=== PATIENT | male | born 1975 | race Caucasian/White ===

== ENCOUNTER 2018-08-10 14:09 | Emergency (ER) | payer MEDICAID, MEDICARE ==
[2018-08-10 14:15] VITALS: BP 149/90
--- NOTE | 2018-08-10 15:12 | ER Document Report ---
ED Medical Screen (RME) - General Chief Complaint: Shortness Of Breath Stated Complaint: BREATHING ISSUES Time Seen by Provider: 08/10/18 14:52 Mode of Arrival: Ambulatory Information source: Patient Notes: Patient came to the ED because he does not have electricity in his house to power his CPAP machine. Patient has a history of obstructive sleep apnea and sleeps with his CPAP machine at night. He also complained of cough which is nonproductive. He said he ran out of his levothyroxine medicine on Saturday. Not been able to refill his medicine because of her Ammy. View of system is negative and patient does not have any other complaints. TRAVEL OUTSIDE OF THE [place] IN LAST 30 DAYS: No - Related Data Allergies/Adverse Reactions: ezetimibe [From Zetia] Allergy (Verified 08/10/18 14:50) phenytoin [From Dilantin] Allergy (Verified 08/10/18 14:15) Past Medical History - Social History Chew tobacco use (# tins/day): No - 2007 Frequency of alcohol use: None Drug Abuse: None Renal/ Medical History: Denies: Hx Peritoneal Dialysis Physical Exam - Vital signs Vitals: Temp Pulse Resp BP Pulse Ox 98.0 F 91 18 149/90 H 96 08/10/18 14:13 08/10/18 14:13 08/10/18 14:13 08/10/18 14:13 08/10/18 14:13 Course - Vital Signs Vital signs: Temp Pulse Resp BP Pulse Ox 98.0 F 91 18 149/90 H 96 08/10/18 14:13 08/10/18 14:13 08/10/18 14:13 08/10/18 14:13 08/10/18 14:13
--- NOTE | 2018-08-10 15:48 | RADIOLOGY REPORT (SQ) ---
EXAM DESCRIPTION: CHEST 2 VIEWS COMPLETED DATE/TIME: 08/10/2018 3:32 pm REASON FOR STUDY: cough COMPARISON: None. EXAM PARAMETERS: NUMBER OF VIEWS: two views TECHNIQUE: Digital Frontal and Lateral radiographic views of the chest acquired. RADIATION DOSE: NA LIMITATIONS: none FINDINGS: LUNGS AND PLEURA: No opacities, masses or pneumothorax. No pleural effusion. MEDIASTINUM AND HILAR STRUCTURES: No masses or contour abnormalities. HEART AND VASCULAR STRUCTURES: Heart normal size. No evidence for failure. BONES: No acute findings. HARDWARE: None in the chest. OTHER: No other significant finding. IMPRESSION: NO ACUTE RADIOGRAPHIC FINDING IN THE CHEST. TECHNICAL DOCUMENTATION: JOB ID: [id number] [employer]- All Rights Reserved Reading location - IP/workstation name: [email or web address]
[2018-08-10 17:26] LABS: FREE T3 1.3 pg/mL (2.77-5.27); FREE T4 (FREE THYROXINE) 0.35 ng/dL (0.78-2.19)
--- NOTE | 2018-08-10 17:38 | ER Document Report ---
ED Respiratory Problem - General Chief Complaint: Shortness Of Breath Stated Complaint: BREATHING ISSUES Time Seen by Provider: 08/10/18 14:52 Mode of Arrival: Ambulatory Information source: Patient TRAVEL OUTSIDE OF THE [place] IN LAST 30 DAYS: No - HPI Patient complains to provider of: Cough Onset: Just prior to arrival Duration: Better Quality of pain: No pain Severity: None Pain Level: Denies Short of Breath: Mild Cough: Nonproductive Sputum amount: None At home treatment: CPAP EMS treatments: Oxygen Associated symptoms: Cough Similar symptoms previously: Yes Recently seen / treated by doctor: No - Related Data Allergies/Adverse Reactions: ezetimibe [From Zetia] Allergy (Verified 08/10/18 14:50) phenytoin [From Dilantin] Allergy (Verified 08/10/18 14:15) Past Medical History - General Information source: Patient - Social History Smoking Status: Current Some Day Smoker Chew tobacco use (# tins/day): No - 2007 Frequency of alcohol use: None Drug Abuse: None Family History: Reviewed & Not Pertinent Patient has suicidal ideation: No Patient has homicidal ideation: No Renal/ Medical History: Denies: Hx Peritoneal Dialysis Review of Systems - Review of Systems Constitutional: denies: Chills, Fever EENT: No symptoms reported Cardiovascular: Dyspnea. denies: Chest pain, Palpitations Respiratory: No symptoms reported Gastrointestinal: No symptoms reported Genitourinary: No symptoms reported Male Genitourinary: No symptoms reported Musculoskeletal: No symptoms reported Skin: No symptoms reported Hematologic/Lymphatic: No symptoms reported Neurological/Psychological: No symptoms reported -: Yes All other systems reviewed and negative Physical Exam - Vital signs Vitals: Temp Pulse Resp BP Pulse Ox 98.0 F 91 18 149/90 H 96 08/10/18 14:13 08/10/18 14:13 08/10/18 14:13 08/10/18 14:13 08/10/18 14:13 - General General appearance: Appears well, Alert In distress: None - HEENT Head: Normocephalic, Atraumatic Eyes: Normal Pupils: PERRL - Respiratory Respiratory status: No respiratory distress Chest status: Nontender Breath sounds: Normal Chest palpation: Normal - Cardiovascular Rhythm: Regular Heart sounds: Normal auscultation Murmur: No - Abdominal Inspection: Normal Distension: No distension Bowel sounds: Normal Tenderness: Nontender Organomegaly: No organomegaly - Back Back: Normal, Nontender - Extremities General upper extremity: Normal inspection, Nontender, Normal color, Normal ROM , Normal temperature General lower extremity: Normal inspection, Nontender, Normal color, Normal ROM , Normal temperature, Normal weight bearing. No: Franklyn's sign - Neurological Neuro grossly intact: Yes Cognition: Normal Orientation: AAOx4 Vian Coma Scale Eye Opening: Spontaneous Vian Coma Scale Verbal: Oriented Ana Coma Scale Motor: Obeys Commands Vian Coma Scale Total: 15 Speech: Normal Motor strength normal: LUE, RUE, LLE, RLE Sensory: Normal - Psychological Associated symptoms: Normal affect, Normal mood - Skin Skin Temperature: Warm Skin Moisture: Dry Skin Color: Normal Course - Vital Signs Vital signs: Temp Pulse Resp BP Pulse Ox 98.0 F 91 18 149/90 H 96 08/10/18 14:13 08/10/18 14:13 08/10/18 14:13 08/10/18 14:13 08/10/18 14:13 - Laboratory Laboratory results interpreted by me: 08/10/18 16:40 TSH 24.50 H Free T4 0.35 L Free T3 pg/mL 1.30 L - Diagnostic Test Radiology reviewed: Image reviewed, Reports reviewed - Transfer of Care Notes: 08/10/18 17:38 Bronchitis. Medication refill. Discharge - Discharge Clinical Impression: Bronchitis, Medication refill Condition: Stable Disposition: HOME, SELF-CARE Instructions: Bronchitis ([facility]) Additional Instructions: Please follow-up with her primary doctor tomorrow morning. Return to the emergency room if her condition worsens. Prescriptions: Amoxicillin/Potassium Clav [Augmentin 875-125 Tablet] 1 each PO BID 10 Days #20 tablet Levothyroxine Sodium 200 mcg PO QAM #30 tablet
[2018-08-10 17:40] LABS: THYROID STIMULATING HORMONE 24.5 uIU/mL (0.47-4.68)
[2018-08-10] MEDS ORDERED: AMOXICILLIN TR/POT CLAVULANATE 500-125 MG TAB PO ONE (18:11)
[2018-08-10] MEDS ORDERED: LEVOTHYROXINE SODIUM 0.1 MG TABLET PO ONE (18:12)
== END 2018-08-10 18:52 | disposition home or self-care (01) ==
LOC: ER 14:09
DX: J40 Bronchitis, not specified as acute or chronic (principal); Z76.0 Encounter for issue of repeat prescription; R05 Cough; G47.33 Obstructive sleep apnea (adult) (pediatric); Z88.8 Allergy status to other drugs, medicaments and biological substances; F17.200 Nicotine dependence, unspecified, uncomplicated
CPT/HCPCS: 99285; 36415; 84439; 84443; 84481; 71046; J3490 ×2

== ENCOUNTER 2019-04-10 05:46 | Emergency (ER) | payer MEDICARE, MEDICAID ==
[2019-04-10 10:24] LABS: HEMATOCRIT 38.8 % (37.9-51.0); HEMOGLOBIN 12.5 g/dL (13.5-17.0); MEAN CORPUSCULAR HEMOGLOBIN 29.4 pg (27.0-33.4); MEAN CORPUSCULAR HGB CONC 32.2 g/dL (32.0-36.0); MEAN CORPUSCULAR VOLUME 92 fl (80-97); PLATELET COUNT 378 10^3/uL (150-450); RED BLOOD COUNT 4.24 10^6/uL (4.35-5.55); RED CELL DISTRIBUTION WIDTH 13.4 % (11.5-14.0); WHITE BLOOD COUNT 15.1 10^3/uL (4.0-10.5)
[2019-04-10 10:30] LABS: ANION GAP 7 (5-19); BLOOD UREA NITROGEN 19 mg/dL (7-20); CALCIUM 9.1 mg/dL (8.4-10.2); CARBON DIOXIDE 30 mmol/L (22-30); CHLORIDE 103 mmol/L (98-107); GLUCOSE 105 mg/dL (75-110); POTASSIUM 4.6 mmol/L (3.6-5.0); SODIUM 139.5 mmol/L (137-145)
[2019-04-10 10:38] LABS: ABSOLUTE LYMPHOCYTES# (MANUAL) 5.3 10^3/uL (0.5-4.7); ABSOLUTE MONOCYTES # (MANUAL) 1.5 10^3/uL (0.1-1.4); ABSOLUTE NEUTROPHILS# (MANUAL) 8.2 10^3/uL (1.7-8.2); BAND NEUTROPHILS % (MANUAL) 1 % (3-5); BASOPHILS % (MANUAL) 0 % (0-2); EOSINOPHILS % (MANUAL) 1 % (0-6); LYMPHOCYTES % (MANUAL) 30 % (13-45); METAMYELOCYTES % (MANUAL) 1 % (0); MONOCYTES % (MANUAL) 10 % (3-13); NUCLEATED RED BLOOD CELLS 1 /100 WBC (0); SEGMENTED NEUTROPHILS % (MAN) 52 % (42-78); TOTAL CELLS COUNTED 100
[2019-04-10 10:39] LABS: PLATELET COMMENT ADEQUATE; POIKILOCYTOSIS SLIGHT; POLYCHROMASIA SLIGHT; SCHISTOCYTES SLIGHT; TEAR DROP CELLS SLIGHT
--- NOTE | 2019-04-10 10:40 | ER Document Report ---
ED ENT - General Chief Complaint: Sore Throat Stated Complaint: SORE THROAT Time Seen by Provider: 04/10/19 08:12 Mode of Arrival: Ambulatory Information source: Patient Notes: Patient is a 43-year-old male presented to the emergency department chief complaint of sore throat and hoarse voice. Patient reports he was seen at another hospital in [facility] approximately 1 week ago and placed on 40 mg of prednisone twice daily for 5 days. Patient reports symptoms have gotten worse, he states that he is having difficulty swallowing. He is speaking in full and complete sentences although his voice is very hoarse. He is able to swallow his own secretions. Patient denies any fevers. TRAVEL OUTSIDE OF THE [place] IN LAST 30 DAYS: No - Related Data Allergies/Adverse Reactions: ezetimibe [From Zetia] Allergy (Verified 08/10/18 14:50) phenytoin [From Dilantin] Allergy (Verified 08/10/18 14:15) Past Medical History - General Information source: Patient - Social History Smoking Status: Never Smoker Frequency of alcohol use: None Drug Abuse: None Family History: Reviewed & Not Pertinent Patient has suicidal ideation: No Patient has homicidal ideation: No - Past Medical History Cardiac Medical History: Reports: Hx Hypertension Renal/ Medical History: Denies: Hx Peritoneal Dialysis Surgical Hx: Negative - Immunizations Immunizations up to date: Yes Review of Systems - Review of Systems Constitutional: denies: Chills, Fever EENT: Throat pain, Difficulty swallowing, Throat swelling Cardiovascular: No symptoms reported Respiratory: No symptoms reported Gastrointestinal: No symptoms reported Genitourinary: No symptoms reported Male Genitourinary: No symptoms reported Musculoskeletal: No symptoms reported Skin: No symptoms reported Hematologic/Lymphatic: No symptoms reported Neurological/Psychological: No symptoms reported Physical Exam - Vital signs Vitals: Temp Pulse Resp BP Pulse Ox 98 F 65 18 132/90 H 97 04/10/19 05:54 04/10/19 05:54 04/10/19 05:54 04/10/19 05:54 04/10/19 05:54 - Notes Notes: PHYSICAL EXAMINATION: GENERAL: Well-appearing, well-nourished and in no acute distress. HEAD: Atraumatic, normocephalic. EYES: Pupils equal round and reactive to light, extraocular movements intact, sclera anicteric, conjunctiva are normal. ENT: Nares patent, oropharynx clear without exudates. Moist mucous membranes. NECK: Normal range of motion, supple without lymphadenopathy LUNGS: Breath sounds clear to auscultation bilaterally and equal. No wheezes rales or rhonchi. HEART: Regular rate and rhythm without murmurs ABDOMEN: Soft, nontender, nondistended abdomen. No guarding, no rebound. No masses appreciated. Musculoskeletal: Normal range of motion, no pitting or edema. No cyanosis. NEUROLOGICAL: Cranial nerves grossly intact. Normal speech, normal gait. Normal sensory, motor exams PSYCH: Normal mood, normal affect. SKIN: Warm, Dry, normal turgor, no rashes or lesions noted. Course - Re-evaluation Re-evalutation: Patient has leukocytosis of 15,000, this is nonspecific and may represent viral or bacterial infection. Do patient to patient's large body habitus and large neck I am unable to get a full visual on patient's oropharynx, from what I can tell that there is mild tonsillar swelling, the uvula is midline and I do not see any obvious abscess. Patient does have a hoarse voice so patient will be sent for a CT soft tissue neck to evaluate for abscess. Patient was given IM Decadron, he states this has helped his symptoms significantly. Patient's CT of the soft tissue was negative for any abscess or any other abnormal finding. Patient will be discharged home. Rapid strep neg ative, throat culture pending. Likely viral sore throat. Patient given strict ED return precautions, he understands and verbalizes agreement with same. - Vital Signs Vital signs: Temp Pulse Resp BP Pulse Ox 97.7 F 58 L 18 144/82 H 94 04/10/19 12:32 04/10/19 12:32 04/10/19 12:32 04/10/19 12:32 04/10/19 12:32 - Laboratory Result Diagrams: 04/10/19 09:16 04/10/19 09:16 Laboratory results interpreted by me: 04/10/19 09:16 WBC 15.1 H RBC 4.24 L Hgb 12.5 L Band Neutrophils % 1 L Metamyelocytes % 1 H Abs Lymphs (Manual) 5.3 H Abs Monocytes (Manual) 1.5 H Discharge - Discharge Clinical Impression: Sore throat Leukocytosis Qualifiers: Leukocytosis type: unspecified Qualified Code(s): D72.829 - Elevated white blood cell count, unspecified Condition: Stable Disposition: HOME, SELF-CARE Additional Instructions: SORE THROAT: Sore throats may be caused by viruses, bacteria, or fungi. Most are due to a virus, and must get better on their own. Bacterial sore throats, particularly those due to "strep," need treatment with antibiotics. If an antibiotic is prescribed, be sure to take the medication for a full 10 days. Failure to take the antibiotic can result in complications such as rheumatic fever. Sometimes, an injection of antibiotics is given instead of pills or liquid. This single "shot" is equal in effectiveness to the oral medication. To relieve symptoms, take acetaminophen for pain. Sip clear liquids frequently, or eat popsicles or ice chips. Anesthetic sprays or lozenges may help. Make sure the air in the room is not too dry. Avoid using decongestants or antihistamines. Call the doctor if there is no improvement in two days, or if you have difficulty breathing, increasing throat pain, high fever, rash, or frequent vomiting. Clindamycin You have been given a prescription for the antibiotic clindamycin. It is often prescribed for infections in the mouth, such as dental infections or abscesses, and for skin infections due to MRSA. It's important that you take all the medication, unless instructed otherwise by your physician. Failure to complete the entire course can result in relapse of your condition. Common side effects of antibiotics include nausea, intestinal cramping, or diarrhea. Women may develop vaginal yeast infections, and babies can get yeast (thrush) in the mouth following the use of antibiotics. Contact your physician if you develop significant side effects from this medication. Allergy to this antibiotic can result in hives, wheezing, faintness, or itching. If symptoms of allergy occur, stop the medication and call the doctor. STEROID MEDICATION: You have been given a medicine of the cortisone/steroid class. This medication is used to control inflammation or allergy. It is usually only given for a short period of time, until the acute process subsides. There are usually no side effects from short-term use of cortisone-like medications. Some persons feel an increased sense of well-being and are not sleepy at bedtime. Long-term use of cortisone medications is best avoided, unless required for a severe condition. If your condition does not remit, or relapses after the course of corticosteroid medication, you should consult your physician. FOLLOW-UP CARE: If you have been referred to a physician for follow-up care, call the physicians office for an appointment as you were instructed or within the next two days. If you experience worsening or a significant change in your symptoms, notify the physician immediately or return to the Emergency Department at any time for re-evaluation. Please take medication as prescribed. Please also take ibuprofen 600 mg every 6 hours this will not only help with pain but also inflammation. You were given a dose of Decadron and clindamycin here in the emergency department today. The Decadron the last in your system up to 3 days. This is a steroid. It will help reduce inflammation in your airway. Please return to the emergency department with any new or worsening symptoms to include difficulty breathing, difficulty swallowing or any other symptom that is concerning to you. Prescriptions: Clindamycin HCl [Cleocin 150 mg Capsule] 150 mg PO Q6 #30 capsule Forms: Return to Work
[2019-04-10] MEDS ORDERED: CLINDAMYCIN 900 MG/D5W RTU 900 MG/50 ML RTUPB IV ONE (11:08)
[2019-04-10] MEDS ORDERED: DEXAMETHASONE SOD PHOS INJ 10 MG/1 ML VIAL IV ONE (11:08)
--- NOTE | 2019-04-10 11:12 | RADIOLOGY REPORT (SQ) ---
EXAM DESCRIPTION: CT SOFT TISSUE NECK WITH COMPLETED DATE/TIME: 04/10/2019 10:49 am REASON FOR STUDY: throat swelling, eval for abscess COMPARISON: None. TECHNIQUE: Post IV contrasted scanning from skull base through lung apices with review of bone, soft tissue and lung windows. Reconstructed coronal and sagittal MPR images reviewed. All images stored on PACS. All CT scanners at this facility use dose modulation, iterative reconstruction, and/or weight based d osing when appropriate to reduce radiation dose to as low as reasonably achievable (ALARA). [facility]: Dose Right [facility]: CareDose [facility]: Dose Right [facility]: Teradose 4D [facility]: Journalism Online CONTRAST TYPE AND DOSE: contrast/concentration: Isovue 350.00 mg/ml; Total Contrast Delivered: 75.0 ml; Total Saline Delivered: 55.0 ml RENAL FUNCTION: None required. The patient is less than 50 years old. RADIATION DOSE: CT Rad equipment meets quality standard of care and radiation dose reduction techniq ues were employed. CTDIvol: 18.5 mGy. DLP: 565 mGy-cm. . LIMITATIONS: None. FINDINGS: SKULL BASE: Inferior brain parenchyma is unremarkable. MAJOR SALIVARY GLANDS: No solid or cystic masses. No inflammatory changes. LYMPHADENOPATHY: No adenopathy. MUCOSAL MASSES OR ASYMMETRY: No mucosal masses or asymmetry. No enlargement of the pharyngeal tonsil s or intra tonsillar/peritonsillar abscess LARYNX/CORDS: No abnormal findings. VASCULAR STRUCTURES: The major vessels are patent. 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 LUNG APICES: Clear. BONES: Intact. THYROID: Normal size. No masses. PARANASAL SINUSES: Clear. OTHER: No other significant finding. IMPRESSION: NO SIGNIFICANT FINDING IN THE SOFT TISSUES OF THE NECK. TECHNICAL DOCUMENTATION: JOB ID: [id number] Quality ID # [id number]: Final reports with documentation of one or more dose reduction techniques (e.g., Au tomated exposure control, adjustment of the mA and/or kV according to patient size, use of iterative reconstruction technique) 2010 [employer]- All Rights Reserved Reading location - IP/workstation name: [email or web address]
[2019-04-10 12:36] VITALS: BP 144/82
== END 2019-04-10 12:50 | disposition home or self-care (01) ==
LOC: ER 05:46
DX: J02.9 Acute pharyngitis, unspecified (principal); D72.829 Elevated white blood cell count, unspecified; I10 Essential (primary) hypertension
CPT/HCPCS: 99283; 96375; 96365; 36415; 87070; 87880; 85025; 80048; 70491; J3490; J1100

== ENCOUNTER 2019-09-01 11:49 | Emergency (ER) | payer MEDICARE, MEDICAID ==
[2019-09-01 11:58] VITALS: BP 143/85
--- NOTE | 2019-09-01 13:08 | ER Document Report ---
HPI - HPI Patient complains to provider of: Right knee pain Time Seen by Provider: 09/01/19 12:56 Onset: Yesterday Onset/Duration: Sudden Quality of pain: Achy Pain Level: 5 Context: Patient states that he was kneeling down and his knee was on a rock. Patient states that he jumped up suddenly and has had right knee pain since then. Associated Symptoms: Other - Right knee pain Exacerbated by: Standing, Movement, Walking Relieved by: Denies Similar symptoms previously: No Recently seen / treated by doctor: No - ROS ROS below otherwise negative: Yes Systems Reviewed and Negative: Yes All other systems reviewed and negative - MUSCULOSKELETAL Musculoskeletal: REPORTS: Extremity pain - right knee. DENIES: Swelling - DERM Skin Color: Normal Skin Problems: None Past Medical History - General Information source: Patient - Social History Smoking Status: Never Smoker Frequency of alcohol use: None Drug Abuse: None Occupation: None Family History: Reviewed & Not Pertinent Patient has suicidal ideation: No Patient has homicidal ideation: No - Past Medical History Cardiac Medical History: Reports: Hx Atrial Fibrillation, Hx Congestive Heart Failure, Hx Hypertension Renal/ Medical History: Denies: Hx Peritoneal Dialysis Past Surgical History: Reports: Hx Herniorrhaphy - Immunizations Immunizations up to date: Yes Vertical Provider Document - CONSTITUTIONAL Agree With Documented VS: Yes Exam Limitations: No Limitations General Appearance: WD/WN, No Apparent Distress - INFECTION CONTROL TRAVEL OUTSIDE OF THE [place] IN LAST 30 DAYS: No - HEENT HEENT: Atraumatic, Normocephalic - NECK Neck: Normal Inspection - RESPIRATORY Respiratory: No Respiratory Distress - CARDIOVASCULAR Pulses: Normal: Posterior tibial - MUSCULOSKELETAL/EXTREMETIES Musculoskeletal/Extremeties: MAEW, FROM, Tender - Right knee joint tenderness to inferior compartment, no obvious effusion, no laxity with varus or valgus maneuvers. Patellar tendon intact - NEURO Level of Consciousness: Awake, Alert, Appropriate Motor/Sensory: No Motor Deficit - DERM Integumentary: Warm, No Rash Course - Re-evaluation Re-evalutation: 09/01/19 13:07 Patient reports pain after jumping up from a kneeling position. No traumatic injury. No concern for fracture or septic arthritis. Patient encouraged to follow-up with orthopedics for any persistent pain or problems. - Vital Signs Vital signs: Temp Pulse Resp BP Pulse Ox 97.5 F 58 L 143/85 H 98 09/01/19 11:58 09/01/19 11:58 09/01/19 11:58 09/01/19 11:58 Procedures - Immobilization Right Knee Pre-Proc Neuro Vasc Exam: Normal Immobilizer type: Jesus wrap Performed by: PCT Post-Proc Neuro Vasc Exam: Normal Alignment checked and good: Yes Discharge - Discharge Clinical Impression: Right knee sprain Qualifiers: Encounter type: initial encounter Involved ligament of knee: unspecified ligament Qualified Code(s): S83.91XA - Sprain of unspecified site of right knee, initial encounter Condition: Stable Disposition: HOME, SELF-CARE Instructions: Use of Crutches ([facility]), Ice & Elevation ([facility]), Sprained Knee ([facility]) Additional Instructions: Return immediately for any new or worsening symptoms Followup with your primary care provider, call tomorrow to make a followup appointment Weightbearing as tolerated Follow-up with orthopedics for any persistent pain or problems Prescriptions: Tramadol HCl [Ultram 50 mg Tablet] 50 mg PO ASDIR PRN #15 tablet PRN Reason: Referrals: [facility] [Provider Group] - Follow up as needed
== END 2019-09-01 13:29 | disposition home or self-care (01) ==
LOC: ER 11:49
DX: S83.91XA Sprain of unspecified site of right knee, initial encounter (principal); X58.XXXA Exposure to other specified factors, initial encounter; M25.561 Pain in right knee; I10 Essential (primary) hypertension
CPT/HCPCS: 99283

== ENCOUNTER 2020-08-20 23:40 | Emergency (ER) | payer MEDICARE, MEDICAID ==
[2020-08-21 00:01] VITALS: BP 146/82
[2020-08-21] MEDS ORDERED: PENICILLIN V POTASSIUM 500 MG TABLET PO ONE (00:54)
[2020-08-21] MEDS ORDERED: HYDROCODONE/ACETAMINOPHEN 5-325 MG (6 TAB/ER DISP) PO PRN (00:54)
--- NOTE | 2020-08-21 00:59 | ER Document Report ---
HPI - HPI Patient complains to provider of: toothache Time Seen by Provider: 08/21/20 00:38 Onset: Other - 3 days Onset/Duration: Persistent Quality of pain: Sharp Pain Level: 5 Context: Patient presents complaining of dental pain for the past 3 days. Patient denies any fever or facial swelling. Patient denies any nausea or vomiting. Associated Symptoms: denies: Fever, Headache, Vomiting Exacerbated by: Denies Relieved by: Denies Similar symptoms previously: Yes Recently seen / treated by doctor: No - ROS ROS below otherwise negative: Yes Systems Reviewed and Negative: Yes All other systems reviewed and negative - CONSTITUTIONAL Constitutional: DENIES: Fever, Chills - EENT EENT: DENIES: Sore Throat Notes: Dental pain - RESPIRATORY Respiratory: DENIES: Coughing - GASTROINTESTINAL Gastrointestinal: DENIES: Nausea, Patient vomiting - MUSCULOSKELETAL Musculoskeletal: DENIES: Neck Pain - DERM Skin Color: Normal Skin Problems: None Past Medical History - General Information source: Patient - Social History Smoking Status: Never Smoker Frequency of alcohol use: None Drug Abuse: None Occupation: None Lives with: Family Family History: Reviewed & Not Pertinent - Past Medical History Cardiac Medical History: Reports: Hx Atrial Fibrillation, Hx Congestive Heart Failure, Hx Hypertension Renal/ Medical History: Denies: Hx Peritoneal Dialysis Past Surgical History: Reports: Hx Herniorrhaphy - Immunizations Immunizations up to date: Yes Vertical Provider Document - CONSTITUTIONAL Agree With Documented VS: Yes Exam Limitations: No Limitations General Appearance: WD/WN, No Apparent Distress - INFECTION CONTROL TRAVEL OUTSIDE OF THE [place] IN LAST 30 DAYS: No - HEENT HEENT: Atraumatic, Normal ENT Exam, Normocephalic Mouth Diagram: 1 - Dental decay, tenderness, no gingival abscess, no trismus, no sublingual or submental swelling - NECK Neck: Normal Inspection, Supple. negative: Lymphadenopathy-Left, Lymphadenopathy-Right - RESPIRATORY Respiratory: Breath Sounds Normal, No Respiratory Distress - CARDIOVASCULAR Cardiovascular: Regular Rate, Regular Rhythm, No Murmur - MUSCULOSKELETAL/EXTREMETIES Musculoskeletal/Extremeties: MAEW - NEURO Level of Consciousness: Awake, Alert, Appropriate Motor/Sensory: No Motor Deficit - DERM Integumentary: Warm, Dry Course - Re-evaluation Re-evalutation: 08/21/20 00:59 Patient with dental pain, no trismus, no drainable abscess. Patient encouraged to follow-up with dental care provider. Discussed worsening symptoms that patient should return immediately for. - Vital Signs Vital signs: Temp Pulse Resp BP Pulse Ox 97.4 F 63 18 146/82 H 97 08/20/20 23:59 08/20/20 23:59 08/20/20 23:59 08/20/20 23:59 08/20/20 23:59 Discharge - Discharge Clinical Impression: Toothache Condition: Stable Disposition: HOME, SELF-CARE Instructions: Toothache ([facility]), [facility], Oral Narcotic Medication ([facility]), Penicillin V K ([facility]) Additional Instructions: Return immediately for any new or worsening symptoms Followup with your primary care provider, call tomorrow to make a followup appointment Follow-up with a dental care provider for further management, call Saturday for an appointment Prescriptions: Hydrocodone/Acetaminophen [[place] 5-325 mg Tablet] 1 tab PO Q6 PRN #6 tablet PRN Reason: Penicillin V Potassium [Penicillin Vk 500 mg Tablet] 500 mg PO BID #20 tablet Referrals: [facility] [Provider Group] - Follow up as needed
== END 2020-08-21 00:55 | disposition home or self-care (01) ==
LOC: ER 23:40
DX: K02.9 Dental caries, unspecified (principal); K08.89 Other specified disorders of teeth and supporting structures; I10 Essential (primary) hypertension
CPT/HCPCS: 99283; A9270 ×2

== ENCOUNTER 2020-11-16 14:37 | Emergency (ER) | payer MEDICARE, MEDICAID ==
--- NOTE | 2020-11-16 14:52 | ER Document Report ---
ED Medical Screen (RME) - General Chief Complaint: Other Stated Complaint: POSSIBLE DEHYDRATION Time Seen by Provider: 11/16/20 14:47 Notes: Patient presents complaining of feeling fatigued and dehydrated. Patient states that he was told recently that his thyroid levels were off although he has had a history of hypothyroidism for a long time. Patient denies any pain symptoms. Patient denies any dizziness. Patient denies any nausea or vomiting. Patient states he just feels dehydrated. Patient does have a history of CHF, hypertension and hypothyroidism. I have greeted and performed a rapid initial assessment of this patient. A com prehensive ED assessment and evaluation of the patient, analysis of test results and completion of the medical decision making process will be conducted by additional ED providers. TRAVEL OUTSIDE OF THE [place] IN LAST 30 DAYS: No - Related Data Allergies/Adverse Reactions: ezetimibe [From Zetia] Allergy (Verified 08/21/20 00:49) latex Allergy (Verified 08/21/20 00:49) phenytoin [From Dilantin] Allergy (Verified 08/21/20 00:49) Past Medical History - Past Medical History Cardiac Medical History: Reports: Hx Atrial Fibrillation, Hx Congestive Heart Failure, Hx Hypertension Renal/ Medical History: Denies: Hx Peritoneal Dialysis Past Surgical History: Reports: Hx Herniorrhaphy - Immunizations Immunizations up to date: Yes Physical Exam - Vital signs Vitals: Temp Pulse Resp BP Pulse Ox 98.7 F 88 18 139/70 H 95 11/16/20 14:45 11/16/20 14:45 11/16/20 14:45 11/16/20 14:45 11/16/20 14:45 - General General appearance: Appears well In distress: None - Respiratory Respiratory status: No respiratory distress Breath sounds: Normal Course - Vital Signs Vital signs: Temp Pulse Resp BP Pulse Ox 98.7 F 88 18 139/70 H 95 11/16/20 14:45 11/16/20 14:45 11/16/20 14:45 11/16/20 14:45 11/16/20 14:45
[2020-11-16 15:17] LABS: ABSOLUTE EOSINOPHILS # (AUTO) 0.1 10^3/uL (0.0-0.6); ABSOLUTE LYMPHOCYTES (AUTO) 1.5 10^3/uL (0.5-4.7); ABSOLUTE MONOCYTES (AUTO) 0.5 10^3/uL (0.1-1.4); ABSOLUTE NEUT (AUTO) 2.8 10^3/uL (1.7-8.2); BASOPHILS % (AUTO) 0.9 % (0-2); EOSINOPHILS % (AUTO) 1.3 % (0-6); HEMATOCRIT 42.2 % (37.9-51.0); HEMOGLOBIN 13.7 g/dL (13.5-17.0); LYMPHOCYTES % (AUTO) 31.1 % (13-45); MEAN CORPUSCULAR HEMOGLOBIN 29.6 pg (27.0-33.4); MEAN CORPUSCULAR HGB CONC 32.4 g/dL (32.0-36.0); MEAN CORPUSCULAR VOLUME 91 fl (80-97); MONOCYTES % (AUTO) 9.7 % (3-13); PLATELET COUNT 256 10^3/uL (150-450); RED BLOOD COUNT 4.62 10^6/uL (4.35-5.55); TOTAL CELLS COUNTED % (AUTO) 100 %; WHITE BLOOD COUNT 4.9 10^3/uL (4.0-10.5)
[2020-11-16 16:01] LABS: ALBUMIN 4.1 g/dL (3.5-5.0); ALKALINE PHOSPHATASE 58 U/L (38-126); ANION GAP 8 (5-19); ASPARTATE AMINO TRANSFERASE 67 U/L (17-59); BILIRUBIN,DIRECT 0.1 mg/dL (0.0-0.4); BILIRUBIN,TOTAL 0.5 mg/dL (0.2-1.3); BLOOD UREA NITROGEN 9 mg/dL (7-20); CALCIUM 8.7 mg/dL (8.4-10.2); CARBON DIOXIDE 29 mmol/L (22-30); CHLORIDE 99 mmol/L (98-107); GLUCOSE 133 mg/dL (75-110); TOTAL PROTEIN 7.5 g/dL (6.3-8.2)
[2020-11-16 16:19] LABS: FREE T4 (FREE THYROXINE) 0.43 ng/dL (0.78-2.19)
[2020-11-16 16:33] LABS: THYROID STIMULATING HORMONE 12.5 uIU/mL (0.47-4.68)
--- NOTE | 2020-11-16 17:04 | ER Document Report ---
ED General - General Chief Complaint: Other Stated Complaint: WEAKNESS Time Seen by Provider: 11/16/20 14:47 Primary Care Provider: ODETTE FUNEZ [NO LOCAL MD] - Follow up as needed ASIF RODRIGUEZ MD [ACTIVE PROVISIONAL STAFF] - Follow up as needed Mode of Arrival: Ambulatory Information source: Patient Notes: ED Medical Screen (Tk [facility])) - General Chief Complaint: Other Stated Complaint: POSSIBLE DEHYDRATION Time Seen by Provider: 11/16/20 14:47 Notes: Patient presents complaining of feeling fatigued and dehydrated. Patient states that he was told recently that his thyroid levels were off although he has had a history of hypothyroidism for a long time. Patient denies any pain symptoms. Patient denies any dizziness. Patient denies any nausea or vomiting. Patient states he just feels dehydrated. Patient does have a history of CHF, hypertension and hypothyroidism. MY NOTES 45-year-old male arrives with fatigue and weakness. He has recently found out he had thyroid problems. Patient denies any Covid contacts but does have a history of CHF hypertension. Patient reports she had a virtual talk with his [facility] today because of his angina pains in his chest. Patient reports around 12 years ago he was diagnosed with Graves' disease and placed on Tapazole. He was placed on this for around 1 year. After that he had to try some radioactive iodine-131 and after the second dose he developed thyroid storm with tachycardia and had to go on metoprolol. The third dose of radioactive iodine-131 completely sclerosed his thyroid down and had to go on levothyroxine and he is now on 200 mcg for the last 10 years. Patient reports shortly thereafter he started having muscle aches ? PMR and saw Dr. Munoz who placed him on prednisone and he went from a 135 pound person to a 300 pound person. Patient reports his angina attacks have been progressively more over the last 24 hours. Patient also has sleep apnea and uses BiPAP at nighttime. TRAVEL OUTSIDE OF THE [place] IN LAST 30 DAYS: No - Related Data Allergies/Adverse Reactions: ezetimibe [From Zetia] Allergy (Verified 08/21/20 00:49) latex Allergy (Verified 08/21/20 00:49) phenytoin [From Dilantin] Allergy (Verified 08/21/20 00:49) Past Medical History - General Information source: Patient - Social History Smoking Status: Never Smoker Cigarette use (# per day): No Chew tobacco use (# tins/day): No Smoking Education Provided: No Frequency of alcohol use: None Drug Abuse: None Lives with: Family Family History: Reviewed & Not Pertinent Patient has suicidal ideation: No Patient has homicidal ideation: No - Past Medical History Cardiac Medical History: Reports: Hx Atrial Fibrillation, Hx Congestive Heart Failure, Hx Hypertension Renal/ Medical History: Denies: Hx Peritoneal Dialysis Past Surgical History: Reports: Hx Herniorrhaphy - Immunizations Immunizations up to date: Yes Review of Systems - Review of Systems Constitutional: See HPI, Weight gain EENT: No symptoms reported Cardiovascular: See HPI, Chest pain Respiratory: No symptoms reported Gastrointestinal: No symptoms reported Genitourinary: No symptoms reported Male Genitourinary: No symptoms reported Musculoskeletal: No symptoms reported Skin: No symptoms reported Hematologic/Lymphatic: No symptoms reported Neurological/Psychological: No symptoms reported -: Yes All other systems reviewed and negative - On Physical Exam - Vital signs Vitals: Temp Pulse Resp BP Pulse Ox 98.7 F 88 18 139/70 H 95 11/16/20 14:45 11/16/20 14:45 11/16/20 14:45 11/16/20 14:45 11/16/20 14:45 Interpretation: Normal - General General appearance: Appears well, Alert - HEENT Head: Normocephalic, Atraumatic Eyes: Normal Pupils: PERRL Pharynx: Other - Normal but appears to have small airway and uvular edema Neck: Normal - Respiratory Respiratory status: No respiratory distress Chest status: Nontender Breath sounds: Normal Chest palpation: Normal - Cardiovascular Rhythm: Regular Heart sounds: Normal auscultation Murmur: No - Abdominal Inspection: Obese, Morbidly Obese Distension: No distension Bowel sounds: Normal Tenderness: Nontender Organomegaly: No organomegaly - Rectal Prostate: Other - Deferred - Genitourinary Scrotum: Other - Deferred - Back Back: Normal, Nontender - Extremities General upper extremity: Normal inspection, Nontender, Normal color, Normal ROM, Normal temperature General lower extremity: Normal inspection, Nontender, Normal color, Normal ROM, Normal temperature, Normal weight bearing. No: Franklyn's sign - Neurological Neuro grossly intact: Yes Cognition: Normal Orientation: AAOx4 [place] Coma Scale Eye Opening: Spontaneous Ana Coma Scale Verbal: Oriented [place] Coma Scale Motor: Obeys Commands [place] Coma Scale Total: 15 Speech: Normal Motor strength normal: LUE, RUE, LLE, RLE Sensory: Normal - Psychological Associated symptoms: Normal affect, Normal mood - Skin Skin Temperature: Warm Skin Moisture: Dry Skin Color: Normal Course - Vital Signs Vital signs: Temp Pulse Resp BP Pulse Ox 98.7 F 88 18 139/70 H 95 11/16/20 14:45 11/16/20 14:45 11/16/20 14:45 11/16/20 14:45 11/16/20 14:45 - Laboratory Results Result Diagrams: 11/16/20 15:00 11/16/20 15:00 Laboratory Results Interpreted: 11/16/20 11/16/20 11/16/20 15:00 15:00 15:00 Sodium 135.6 L Glucose 133 H AST 67 H Creatine Kinase 2059 H TSH 12.50 H Free T4 0.43 L Critical Laboratory Results Reviewed: Yes Attending or Supervising Physician who Reviewed Labs: BRAULIO ROTHMAN JR - Radiology Results Critical Radiology Results Reviewed: No Critical Results Attending or Supervising Physician who Reviewed Radiology: BRAULIO ROTHMAN JR - EKG Interpretation by [facility] EKG shows normal: Sinus rhythm Rate: Normal Rhythm: NSR - [address] elevation no ST depression and no T wave elevation and no T wave depression and this was read by myself and I agree with the EKG machine as well. Critical Care Note - Critical Care Note Comments: I spoke with Dr. Asif Rodriguez at 1747 and he advised he will look this patient up and he will see him tomorrow in office. Patient advised he might need some IV fluids to rehydrate him. I spoke with Ajay GONZALES about IV fluids 1 L wide open prior to discharge Discharge - Discharge Clinical Impression: Angina at rest, Thyroid disease, Sleep apnea in adult Obesity Qualifiers: Obesity type: unspecified obesity type Obesity classification: unspecified obesity classification Serious obesity comorbidity presence: unspecified whether serious comorbidity present Qualified Code(s): E66.9 - Obesity, unspecified Condition: Stable Disposition: HOME, SELF-CARE Additional Instructions: Follow-up with ; return to ER as needed take medicines as directed ; increase your levothyroxine to 300 mcg daily; Referrals: DEE DEE,ODETTE [NO LOCAL MD] - Follow up as needed ASIF RODRIGUEZ MD [ACTIVE PROVISIONAL STAFF] - Follow up as needed
--- NOTE | 2020-11-16 17:49 | RADIOLOGY REPORT (SQ) ---
EXAM DESCRIPTION: CHEST SINGLE VIEW IMAGES COMPLETED DATE/TIME: 11/16/2020 4:24 pm REASON FOR STUDY: weak COMPARISON: 08/10/2018 EXAM PARAMETERS: NUMBER OF VIEWS: One view. TECHNIQUE: Single frontal radiographic view of the chest acquired. RADIATION DOSE: NA LIMITATIONS: None. FINDINGS: LUNGS AND PLEURA: No opacities, masses or pneumothorax. No pleural effusion. MEDIASTINUM AND HILAR STRUCTURES: No masses. Contour normal. HEART AND VASCULAR STRUCTURES: Heart normal in size. Normal vasculature. BONES: No acute findings. HARDWARE: None in the chest. OTHER: No other significant finding. IMPRESSION: NO ACUTE RADIOGRAPHIC FINDING IN THE CHEST. TECHNICAL DOCUMENTATION: JOB ID: [id number] 2010 [employer]- All Rights Reserved Reading location - IP/workstation name: [email or web address]
[2020-11-16] MEDS ORDERED: NORMAL SALINE 1000 ML 1,000 ML IV ONE (18:37)
--- NOTE | 2020-11-16 19:10 | EKG REPORT ---
SEVERITY:- ABNORMAL ECG - SINUS RHYTHM DIFFUSE NONSPECIFIC ST-T CHANGES : Confirmed by: Mc Edmonds MD 16-Nov-2020 19:09:57
[2020-11-16 19:55] VITALS: BP 125/69
== END 2020-11-16 19:52 | disposition home or self-care (01) ==
LOC: ER 14:37
DX: E03.9 Hypothyroidism, unspecified (principal); M35.3 Polymyalgia rheumatica; I20.9 Angina pectoris, unspecified; R79.89 Other specified abnormal findings of blood chemistry; E66.9 Obesity, unspecified; R53.83 Other fatigue; I10 Essential (primary) hypertension; R53.1 Weakness; G47.30 Sleep apnea, unspecified; Z99.89 Dependence on other enabling machines and devices; Z79.899 Other long term (current) drug therapy; Z79.52 Long term (current) use of systemic steroids; Z88.8 Allergy status to other drugs, medicaments and biological substances; Z91.040 Latex allergy status
CPT/HCPCS: 93005; 99285; 36415; 84439; 82550; 85025; 84443; 80053; 83880; 71045; 93010; J7030